=== PATIENT | male | born 1960 | race Caucasian/White ===

== ENCOUNTER 2018-05-21 03:41 | Emergency (ER) | payer OTHER ==
[2018-05-21] MEDS ORDERED: Morphine 4 MG/ML VIAL ONE (04:45)
[2018-05-21] MEDS ORDERED: Ondansetron HCl/PF 4 MG/2 ML Vial ONE (04:46)
[2018-05-21 04:50] LABS: #Basophils 0.1 thou/uL (0.0-0.2); #Eosinphils 0.4 thou/uL (0.0-0.7); #Lymphocytes 2.6 thou/uL (1.20-3.40); #Monocytes 1.1 thou/uL (0.11-0.59); #Neutrophils 6.3 thou/uL (1.40-6.50); %Basophils 0.8 % (0.0-1.0); %Eosinophils 3.5 % (0.0-10.0); %Monocytes 10.2 % (0.0-10.0); %Neutrophils 60.4 % (42.0-75.0); Hemoglobin 10.5 g/dL (14.0-18.0); Mean Corpuscular HGB CONC 32.7 g/dL (32.0-36.0); Mean Corpuscular Hemoglobin 30.2 pg (27.0-31.0); Mean Corpuscular Volume 92.3 fL (78.0-98.0); Mean Platelet Volume 6.5 fL (7.4-10.4); Platelet Count 447 thou/uL (130-400); RBC Distribution Width 12.3 % (11.5-14.5); Red Blood Cell (RBC) Count 3.49 mill/uL (4.70-6.10); White Blood Cell (WBC) Count 10.4 thou/uL (4.8-10.8)
[2018-05-21 05:08] LABS: ALT (SGPT) 24 U/L (8-55); AST (SGOT) 22 U/L (5-34); Alkaline Phosphatase 74 U/L (40-150); Anion Gap 12 mmol/L (10-20); BUN (Urea Nitrogen) 10 mg/dL (8.4-25.7); Bilirubin, Total 0.9 mg/dL (0.2-1.2); Calc. Creatinine Clearance 0 mL/min (70-130); Calcium 9.4 mg/dL (7.8-10.44); Carbon Dioxide 24 mmol/L (22-29); Chloride 105 mmol/L (98-107); Estimated GFR-MDRD Greater than 90; Globulin 3.1 g/dL (2.4-3.5); Glucose 104 mg/dL (70-105); Potassium 4.5 mmol/L (3.5-5.1); Protein, Total 7.1 g/dL (6.0-8.3); Sodium 136 mmol/L (136-145)
--- NOTE | 2018-05-21 08:11 | CT ---
CT OF THE ABDOMEN AND PELVIS WITH IV CONTRAST: INDICATION: Abdominal pain that started yesterday. History of right knee replacement 1 week ago with use of hydr ocodone following the surgery and constipation. FINDINGS: Lung bases are clear. There are numerous lesions within the liver. The majority of them are slightly hyperenhancing. One is seen measuring 1.6 cm on image 16 of series 2 in the left hepatic lobe. Additional enhancing lesi on is seen within the medial left hepatic lobe on image 14 of series 2. There is an enhancing lesion within segment 5 of the right hepatic lobe on image 24 of series 2 measuring 2.6 cm. There is an en hancing lesion within segment 6 of the hepatic lobe on image 25 of series 2 measuring 11 mm. There is a hypodense lesion within segment 7 of the right hepatic lobe on image 13 series 2 measuring 1.2 cm. These cannot be further characterized. The pancreas and adrenal glands are normal appearing. The kidneys appear within normal limits. The spleen is normal-appearing. No free fluid or enlarged lymph nodes were evident. There is a moderate amount of retained stool within the colon. The appendix is not definitely visual ized. No definite free fluid is evident. There are bilateral inguinal hernias. The one on the righ t contains fat. The one on the left contains fat and portions of the sigmoid colon without evidence of strangulation. The bladder is decompressed. There is subcutaneous edema overlying the right hip which is nonspecific and may reflect a contusion. There is scattered degenerative and osteoarthritic change. IMPRESSION: 1. A moderate amount of retained stool within the colon. 2. Subcutaneous edema overlying the right hip may reflect contusion. 3. Bilateral inguinal hernias. The right contains fat and the left contains fat and portions of the sigmoid colon without evidence of strangulation. 4. Numerous hepatic lesions incompletely characterized. Followup CT or MRI of the abdomen utilizing hemangioma protocol is recommended for additional characterization. POS: [facility]
[2018-05-21] MEDS ORDERED: ISOVUE-370 76%-LOCM 1 ML ONE (12:21)
== END 2018-05-21 06:00 | disposition home or self-care (01) ==
LOC: ERS 03:41
DX: K40.20 Bilateral inguinal hernia, without obstruction or gangrene, not specified as recurrent (principal); E03.9 Hypothyroidism, unspecified; Z79.899 Other long term (current) drug therapy
CPT/HCPCS: 74177; 80053; 85025; 96374; 96375; J2270; J2405

== ENCOUNTER 2018-06-03 11:51 | Outpatient (CLI) | payer OTHER ==
[2018-06-03 13:16] LABS: #Basophils 0.1 thou/uL (0.0-0.2); #Eosinphils 0.3 thou/uL (0.0-0.7); #Lymphocytes 2.8 thou/uL (1.20-3.40); #Monocytes 0.6 thou/uL (0.11-0.59); #Neutrophils 3.8 thou/uL (1.40-6.50); %Basophils 1.2 % (0.0-1.0); %Eosinophils 3.7 % (0.0-10.0); %Lymphocytes 36.9 % (21.0-51.0); %Monocytes 7.4 % (0.0-10.0); %Neutrophils 50.7 % (42.0-75.0); Hemoglobin 13.4 g/dL (14.0-18.0); Mean Corpuscular HGB CONC 31.9 g/dL (32.0-36.0); Mean Platelet Volume 6.5 fL (7.4-10.4); Platelet Count 562 thou/uL (130-400); RBC Distribution Width 13.8 % (11.5-14.5); Red Blood Cell (RBC) Count 4.46 mill/uL (4.70-6.10); White Blood Cell (WBC) Count 7.5 thou/uL (4.8-10.8)
[2018-06-03 13:53] LABS: ALT (SGPT) 18 U/L (8-55); AST (SGOT) 14 U/L (5-34); Albumin 4.8 g/dL (3.5-5.0); Alkaline Phosphatase 68 U/L (40-150); Anion Gap 15 mmol/L (10-20); BUN (Urea Nitrogen) 14 mg/dL (8.4-25.7); Bilirubin, Total 0.5 mg/dL (0.2-1.2); Calc. Creatinine Clearance 0 mL/min (70-130); Calcium 10.2 mg/dL (7.8-10.44); Carbon Dioxide 26 mmol/L (22-29); Chloride 103 mmol/L (98-107); Estimated GFR-MDRD 82; Globulin 2.9 g/dL (2.4-3.5); Glucose 91 mg/dL (70-105); Potassium 4.5 mmol/L (3.5-5.1); Protein, Total 7.7 g/dL (6.0-8.3); Sodium 139 mmol/L (136-145)
== END 2018-06-03 11:52 | disposition home or self-care (01) ==
LOC: LABBT 11:51
PROVIDERS: ATTEND Surgery
DX: Z01.818 Encounter for other preprocedural examination (principal); K40.20 Bilateral inguinal hernia, without obstruction or gangrene, not specified as recurrent
CPT/HCPCS: 80053; 85025; 93005; 93010

== ENCOUNTER 2018-06-11 05:54 | Day surgery (SDC) | payer OTHER ==
[2018-06-03 12:01] VITALS: BMI 26.2
[2018-06-11] MEDS ORDERED: CEFAZOLIN 2 GM/50 ML BAG ONE (06:07)
[2018-06-11] MEDS ORDERED: Metoclopramide HCl 10 MG/2 ML VIAL ONE ×2 (06:43→11:22)
[2018-06-11] MEDS ORDERED: Fentanyl 250 MCG/5 ML VIAL ONE (06:43)
[2018-06-11] MEDS ORDERED: Bupivacaine/Epinephrine 0.25% 30 ML VIAL ONE (06:56)
[2018-06-11] MEDS ORDERED: Fentanyl 100 MCG/2 ML VIAL ONE (09:08)
--- NOTE | 2018-06-11 10:58 | OP ---
PREOPERATIVE DIAGNOSIS: Bilateral inguinal hernia. SURGEON: Rubin Vicente M.D. PROCEDURE PERFORMED: Laparoscopic robotic-assisted left inguinal hernia repair with mesh. INDICATIONS: This is a 57-year-old male, who had a very large left inguinal hernia and is wearing a truss. He had to go the ER for reduction. On exam, I thought I felt a small right inguinal hernia a s well. FINDINGS: He only had a large left inguinal hernia. I did not see a right inguinal hernia from insi de. PROCEDURE IN DETAIL: After informed consent was obtained, the patient was taken to the operating halle m, given general endotracheal anesthesia. Placed in a supine position. His abdomen and groin preppe d and draped in usual fashion. Local anesthesia infiltrated subcutaneously and deep. A supraumbilic al incision was performed. The subcu divided sharply. The fascia grasped and an incision made in th e fascia. Digital palpation revealed no local adhesions. A 12-mm trocar inserted. Pneumoperitoneum was created to a pressure of 15 mmHg. A 30-degree scope was inserted, and under direct vision, two 8 mm ports were placed just lateral to the rectus muscle bilateral at the level of the first incision . The patient placed in Trendelenburg position and the robot was docked, then I went below, inspecte d the pelvis. A very large left inguinal hernia, no right-sided hernia. The peritoneum was opened f rom median umbilical ligament laterally, a subperitoneal plane developed using blunt and sharp dissec tion. The hernia sac was reduced and then a large left contour mesh was inserted. It was sutured to the pubic tubercle medially, tucked and then spread out laterally and sutured just medial to the epi gastric vessels with another 2-0 silk suture tied intracorporeally. Then the peritoneum was closed f rom lateral to medial with a running 3-0 V-Loc. Hemostasis was assured. Trocars and retractors zachariah sb. The fascia closed with interrupted 0 Vicryl suture. The skin closed with interrupted 4-0 Rapid e. Dermabond applied. The patient tolerated the procedure well and was transferred to recovery in g ood condition. Sponge and needle count verified correct x2.
[2018-06-11] MEDS ORDERED: Ondansetron PF 4 MG/2 ML Vial ONE (11:22)
[2018-06-11] MEDS ORDERED: PHENYLEPHRINE-NS 100 MCG/ML 10 ML SYRINGE ONE (11:22)
[2018-06-11] MEDS ORDERED: Ketorolac Tromethamine 30 MG/ML VIAL ONE (11:22)
[2018-06-11] MEDS ORDERED: Glycopyrrolate 0.2 MG/ML 5 ML SYRINGE ONE (11:22)
[2018-06-11] MEDS ORDERED: Dexamethasone 20 MG/5 ML VIAL ONE (11:22)
[2018-06-11] MEDS ORDERED: PROPOFOL 200 MG/20 ML VIAL ONE (11:22)
[2018-06-11] MEDS ORDERED: Lidocaine 1% PF 5 ML VIAL ONE (11:22)
== END 2018-06-11 10:43 | disposition home or self-care (01) ==
LOC: SDC 05:54
PROVIDERS: ATTEND Surgery
PROC: 0YQ64ZZ Repair Left Inguinal Region, Percutaneous Endoscopic Approach (ICD-10-PCS; principal; 2018-06-11)
DX: K40.90 Unilateral inguinal hernia, without obstruction or gangrene, not specified as recurrent (principal); Z79.82 Long term (current) use of aspirin; Z79.899 Other long term (current) drug therapy; Z87.891 Personal history of nicotine dependence
CPT/HCPCS: 96374; C1781; J1100; J1885; J2001; J2405; J2704; J2765; J3010

== ENCOUNTER 2019-08-19 16:06 | Outpatient (CLI) | payer OTHER ==
[2019-08-19 16:48] LABS: #Basophils 0.1 thou/uL (0.0-0.2); #Eosinphils 0.6 thou/uL (0.0-0.7); #Lymphocytes 3.8 thou/uL (1.20-3.40); #Monocytes 0.7 thou/uL (0.11-0.59); %Eosinophils 6.6 % (0.0-10.0); %Lymphocytes 41.5 % (21.0-51.0); %Monocytes 7.7 % (0.0-10.0); %Neutrophils 43.2 % (42.0-75.0); Hemoglobin 15.2 g/dL (14.0-18.0); Mean Corpuscular HGB CONC 33.6 g/dL (32.0-36.0); Mean Corpuscular Hemoglobin 30.8 pg (27.0-31.0); Mean Corpuscular Volume 91.6 fL (78.0-98.0); Mean Platelet Volume 6.9 fL (7.4-10.4); Platelet Count 280 thou/uL (130-400); RBC Distribution Width 12.2 % (11.5-14.5); Red Blood Cell (RBC) Count 4.93 mill/uL (4.70-6.10); White Blood Cell (WBC) Count 9.2 thou/uL (4.8-10.8)
[2019-08-19 17:02] LABS: ALT (SGPT) 22 U/L (8-55); AST (SGOT) 18 U/L (5-34); Albumin 4.5 g/dL (3.5-5.0); Alkaline Phosphatase 65 U/L (40-110); Anion Gap 13 mmol/L (10-20); BUN (Urea Nitrogen) 11 mg/dL (8.4-25.7); Bilirubin, Total 0.3 mg/dL (0.2-1.2); Calc. Creatinine Clearance 0 mL/min (70-130); Calcium 9.5 mg/dL (7.8-10.44); Carbon Dioxide 25 mmol/L (22-29); Chloride 104 mmol/L (98-107); Estimated GFR-MDRD 79; Glucose 87 mg/dL (70-105); Potassium 4.2 mmol/L (3.5-5.1); Protein, Total 7.5 g/dL (6.0-8.3); Sodium 138 mmol/L (136-145)
--- NOTE | 2019-08-21 15:24 | EKG ---
Test Reason : Blood Pressure : / mmHG Vent. Rate : 074 BPM Atrial Rate : 074 BPM P-R Int : 154 ms QRS Dur : 098 ms QT Int : 376 ms P-R-T Axes : 025 047 028 degrees QTc Int : 417 ms Sinus rhythm with occasional Premature ventricular complexes Cannot rule out Anterior infarct , age undetermined Abnormal ECG When compared with ECG of 03-JUN-2018 12:47, Premature ventricular complexes are now Present Confirmed by DR. Radha EMMANUEL ([id number]) on 08/21/2019 3:24:00 PM Referred By: ANA Confirmed By:DR. Radha EMMANUEL
== END 2019-08-19 16:07 | disposition home or self-care (01) ==
LOC: LABBT 16:06
PROVIDERS: ATTEND Surgery
DX: Z01.812 Encounter for preprocedural laboratory examination (principal); K40.91 Unilateral inguinal hernia, without obstruction or gangrene, recurrent
CPT/HCPCS: 80053; 85025; 93005; 93010

== ENCOUNTER 2019-08-21 06:43 | Day surgery (SDC) | payer OTHER ==
[2019-08-19 16:36] VITALS: BMI 27.0
[2019-08-21] MEDS ORDERED: Bupivacaine 0.25% HCL 30 ML VIAL ONE (09:00)
[2019-08-21] MEDS ORDERED: Lidocaine 1% w/Epinephrine 1:100K 20 ML VIAL ONE (09:00)
[2019-08-21] MEDS ORDERED: Fentanyl 100 MCG/2 ML VIAL ONE ×3 (09:39→11:13)
[2019-08-21] MEDS ORDERED: Midazolam HCl 2 mg/2 ml Vial ONE (09:39)
[2019-08-21] MEDS ORDERED: SUGAMMADEX SODIUM 200 MG/2 ML VIAL ONE (09:39)
[2019-08-21] MEDS ORDERED: HYDROmorphone 0.5 MG/0.5 ML SYRINGE ONE (09:39)
--- NOTE | 2019-08-21 11:25 | OP ---
DATE OF PROCEDURE: 08/21/2019 PREOPERATIVE DIAGNOSIS: Recurrent left inguinal hernia. PROCEDURE PERFORMED: Recurrent left inguinal hernia repair with mesh. INDICATIONS FOR PROCEDURE: This is a 58-year-old male, who had a robotic left inguinal hernia repair, who was found to have a recurrent bulge. FINDINGS: A recurrent indirect left inguinal hernia. DESCRIPTION OF PROCEDURE: After informed consent was obtained, the patient was taken to the operating room, given general endotracheal anesthesia, and placed in the supine position. The abdomen was prepped and draped in usual fashion. Local anesthesia was infiltrated subcutaneously and deep. A transverse left inguinal incision was performed. Subcu was divided sharply. Fascia of the external oblique was incised in direction of its fibers through the external ring. Spermatic cord was isolated with a Camille drain. Cremasteric fibers were . There was a hernia sac. This was dissected from surrounding cord structures down to the internal ring and reduced. Reduction was maintained utilizing a PHS hernia system. Posterior layer was placed in the preperitoneal space, laid out, sutured to the pubic tubercle medially, tucked under the external oblique fascia laterally. A notch was cut out for the spermatic cord. Hemostasis was assured. Cord was placed anatomically. The external oblique fascia was closed over the cord with a running 3-0 Vicryl. Shaka's was closed with interrupted 3-0 Vicryl, and skin was closed with a running subcuticular 4-0 Rapide. Steri-Strips were applied. Sterile bandage was applied. The patient tolerated the procedure well, transferred to Recovery in good condition. Sponge and needle count verified correct x2. Job ID: [id number]
[2019-08-21] MEDS ORDERED: Rocuronium Bromide 10 MG/ML (10ML VIAL) ONE (14:45)
[2019-08-21] MEDS ORDERED: Dexamethasone 20 MG/5 ML VIAL ONE (14:45)
[2019-08-21] MEDS ORDERED: Ondansetron PF 4 MG/2 ML Vial ONE (14:45)
[2019-08-21] MEDS ORDERED: PROPOFOL 200 MG/20 ML VIAL ONE (14:45)
== END 2019-08-21 12:40 | disposition home or self-care (01) ==
LOC: SDC 06:43
PROVIDERS: ATTEND Surgery
PROC: 0YU64JZ Supplement Left Inguinal Region with Synthetic Substitute, Percutaneous Endoscopic Approach (ICD-10-PCS; principal; 2019-08-21)
DX: K40.91 Unilateral inguinal hernia, without obstruction or gangrene, recurrent (principal); Z79.899 Other long term (current) drug therapy; Z87.891 Personal history of nicotine dependence
CPT/HCPCS: C1781; J0690; J1100; J1170; J2250; J2405; J2704; J3010; S0020